=== PATIENT | female | born 1970 | race Caucasian/White ===

== ENCOUNTER 2021-03-02 16:02 | Outpatient (CLI) | payer BC | END 2021-03-02 16:03 | disposition home or self-care (01) | LOC: BICMAMMO 16:02 | PROVIDERS: ATTEND Nurse Practitioner | DX: Z12.31 Encounter for screening mammogram for malignant neoplasm of breast (principal) | CPT/HCPCS: 77063; 77067 ==

== ENCOUNTER 2022-09-04 08:00 | Day surgery (SDC) | payer BC ==
[2022-09-03 10:05] VITALS: BMI 22.8
[2022-09-04] MEDS ORDERED: Oxymetazoline HCl 0.05% (30 ML BOT) ONE (10:06)
[2022-09-04] MEDS ORDERED: Lidocaine 1% (PF) 30 ML VIAL ONE (10:06)
[2022-09-04] MEDS ORDERED: EPINEPHrine 1 MG/ML AMP ONE (10:06)
[2022-09-04] MEDS ORDERED: fentaNYL PF 100 MCG/2 ML SYRINGE ONE (10:11)
[2022-09-04] MEDS ORDERED: Midazolam HCl 2 mg/2 ml Vial ONE (10:11)
[2022-09-04] MEDS ORDERED: HYDROmorphone 0.5 MG/0.5 ML SYRINGE ONE (10:11)
[2022-09-04] MEDS ORDERED: Dexamethasone 20 MG/5 ML VIAL ONE (10:19)
[2022-09-04] MEDS ORDERED: Ondansetron PF 4 MG/2 ML Vial ONE (10:19)
[2022-09-04] MEDS ORDERED: Lidocaine 1% PF 5 ML VIAL ONE (10:19)
[2022-09-04] MEDS ORDERED: PROPOFOL 200 MG/20 ML VIAL ONE (10:19)
== END 2022-09-04 13:45 | disposition home or self-care (01) ==
LOC: SDC 08:00
PROVIDERS: ATTEND Otolaryngology Plastic Surgery within the Head & Neck
PROC: 0NSB34Z Reposition Nasal Bone with Internal Fixation Device, Percutaneous Approach (ICD-10-PCS; principal; 2022-09-04)
PROC: 09TL0ZZ Resection of Nasal Turbinate, Open Approach (ICD-10-PCS; principal; 2022-09-04)
DX: S02.2XXA Fracture of nasal bones, initial encounter for closed fracture (principal); J34.3 Hypertrophy of nasal turbinates; J34.89 Other specified disorders of nose and nasal sinuses; J34.2 Deviated nasal septum; J30.9 Allergic rhinitis, unspecified; Z79.899 Other long term (current) drug therapy; Z88.2 Allergy status to sulfonamides; Z88.6 Allergy status to analgesic agent; Z88.8 Allergy status to other drugs, medicaments and biological substances; X58.XXXA Exposure to other specified factors, initial encounter
CPT/HCPCS: J0171; J1100; J1170; J2001; J2250; J2405; J2704

== ENCOUNTER 2023-05-16 10:57 | Outpatient (CLI) | payer BC | END 2023-05-16 10:58 | disposition home or self-care (01) | LOC: BICMAMMO 10:57 | PROVIDERS: ATTEND Nurse Practitioner | DX: Z12.31 Encounter for screening mammogram for malignant neoplasm of breast (principal) | CPT/HCPCS: 77063; 77067 ==

== ENCOUNTER 2025-06-03 10:36 | Outpatient (CLI) | payer BC | END 2025-06-03 10:37 | disposition home or self-care (01) | LOC: BICMAMMO 10:36 | PROVIDERS: ATTEND Family Medicine | DX: Z12.31 Encounter for screening mammogram for malignant neoplasm of breast (principal); N64.89 Other specified disorders of breast; R92.333 Mammographic heterogeneous density, bilateral breasts | CPT/HCPCS: 77063; 77067 ==